=== PATIENT | male | born 1960 ===

== ENCOUNTER 2017-09-26 15:18 | Outpatient (CLI) | payer OTHER ==
[~2017-09-26 15:18] MED LIST: AVAPRO150 MG; LIPITOR20 MG; METFORMIN HCL500 MG; SYNTHROID50 MCG; TOPROL XL25 M1
== END 2017-09-26 15:20 | disposition home or self-care (01) ==
LOC: SONOGRAMA 15:18
DX: E04.1 Nontoxic single thyroid nodule (principal)